=== PATIENT | female | born 1985 ===

== ENCOUNTER 2017-01-07 21:42 | Emergency (ER) | payer MEDICAID ==
[~2017-01-07] VITALS: Ht 157.5 cm; Wt 60.0 kg
[~2017-01-07 21:42] MED LIST: CEPH500C PO
[2017-01-07 21:51] VITALS: BP 117/75; PULSE 81; RESP 16; O2SAT 99
--- NOTE | 2017-01-07 22:40 | ED.REPORT ---
HPI-Rash / Abscess Date of Service Jan 07, 2017 ED Provider: Raphael Rivera DO Patient is a 31 year old female with a history of IV heroin use who presents to the ED complaining of multiple abscesses onset 2 weeks ago. Associated symptoms include pain, redness and swelling. The patient reports that she noticed one on her right shoulder that went away but then it came back. She also reports having one on her left upper arm and above her elbow. The patient states that she last used heroin today for the pain but would like to quit. Nursing Notes Stated Complaint: ABSCESS ON BOTH UPPER ARMS Chief Complaint: Skin Rash/Abscess Nursing Notes Reviewed: Yes Allergies: Coded Allergies: No Known Allergies (Unverified , 01/07/17) Scheduled Cephalexin (Cephalexin) 500 Mg Capsule 500 MG PO QID General Time Seen by MD: 22:40 Chief Complaint Abscess Hx Obtained From: Patient Arrived By: Walk-in Onset Occurred: More than a week ago... (2 weeks) Symptom Duration: Since onset Location: : Shoulder Severity: Current: Moderate Recent Healthcare: No recent doctor visit, No recent hospitalization Similar Sx Previous: Yes Past Medical History Past Medical History denies Past Surgical History denies Smoking History Current Every Day Smoker Social History Drug Use: IV drugs Other Social History: Good social support Ambulatory Status Independent Review of Systems Constitutional: Denies: Chills, Fever Respiratory: Denies: Non-productive cough, Shortness of breath Musculoskeletal: Reports: Extremity pain (both shoulders) Skin: Reports Swelling Complete sys rev & neg: except as marked. Physical Exam Initial Vital Signs Vital Signs (First) Date Time Temp Pulse Resp B/P Pulse Ox O2 Delivery O2 Flow Rate FiO2 01/07/17 21:51 36.8 81 16 117/75 99 Room Air Initial VS: Reviewed General/Constitutional: Awake, Alert SKIN: abscess to the right shoulder and left upper arm hot, erythematous and bulging Head / Eyes: Atraumatic, Normocephalic, PERRL, EOMI Respiratory / Chest: Atraumatic, Breath sounds NL, Breath sounds = bilat, No respiratory distress Cardiovascular: Heart rate NL, Regular rhythm, Heart sounds NL, No murmurs Lower Extremity / Pelvis / MS: Atraumatic, Full range of motion Neurologic: Oriented X3, Speech NL, No motor deficits, No sensory deficits Wrist / Hand: Atraumatic, Inspection NL, Full range of motion no nail bed lesions Psychiatric: Affect NL, Mood NL Re-Eval/Medical Decision Med Decision/Clinical Course Recommended incision and drainage but patient wanted antibiotics This is a very pleasant 31-year-old female who presents with an abscess of the right deltoid region. She is an injection drug abuser. I strongly recommend incision and drainage. She declines this. She wants to give a trial of oral antibiotics. Even though I think this is going to fail I certainly could not force her to undergo an invasive procedure. I will place her on Keflex and Bactrim for both staph and strep coverage. We will refer her to the surgical clinic as well as [facility]. She will come back tomorrow if she is not significantly improved. Source of Hx: Old records Counseled Regarding: Diagnosis, Need for follow-up, When/why to return to ED Discharge & Departure Impression: Primary Impression: Abscess of multiple sites Disposition: Home Discharge Condition All VS Reviewed: Yes Condition: Stable Patient Instructions: Abscess (ED), Cellulitis (ED) Additional Instructions: I recommend incision and drainage as definitive therapy. Return to the emergency department if you change your mind about this procedure or if it is not significantly improved in 24 hours. You may also set up a follow-up with the surgical clinic to have this drained. For your long-term health I strongly recommend [facility] for Suboxone treatment and heroin cessation. Contact the clinics tomorrow to set up a follow-up. Come back to emergency department incision and drainage performed if you agree to this procedure. Otherwise take Bactrim twice daily for 7 days. Take Keflex 4 times daily for 7 days. Abstain from abusing injection drugs. Do not hesitate to return if any problems or any new or worsening symptoms. Referrals: Willis Villeda MD [facility] Aren Attestation Portions of this note were transcribed by Lizet Andrade. I, Dr. Rivera personally performed the history, physical exam and medical decision-making; I reviewed and confirmed the accuracy of the information in the transcribed note. Signed by: Aren Gan, 01/07/17 and [id number] copies to: Willis Villeda MD; [facility] ; [facility] Raphael Rivera DO Jan 07, 2017 22:40 Rosalie Andrade Jan 07, 2017 22:49
[2017-01-07] MEDS ORDERED: Trimethoprim-Sulfa 160 mg-800 mg Tablet PO ONE (22:50)
[2017-01-07 23:10] VITALS: BP 122/82; PULSE 99; RESP 18; O2SAT 97
== END 2017-01-07 23:11 | disposition home or self-care (01) ==
LOC: SED 21:42
DX: L02.413 Cutaneous abscess of right upper limb (principal); L02.414 Cutaneous abscess of left upper limb; F17.200 Nicotine dependence, unspecified, uncomplicated

== ENCOUNTER 2017-03-24 21:27 | Emergency (ER) | payer MEDICAID ==
[~2017-03-24] VITALS: Ht 157.5 cm; Wt 63.6 kg
[2017-03-24 21:30] VITALS: BP 113/75; PULSE 86; RESP 16; O2SAT 99
== END 2017-03-24 22:15 | disposition left against medical advice (07) ==
LOC: SED 21:27
DX: Z53.21 Procedure and treatment not carried out due to patient leaving prior to being seen by health care provider (principal)